=== PATIENT | female | born 1955 | race Caucasian/White ===

== ENCOUNTER 2019-07-20 12:51 | Emergency (ER) | payer OTHER ==
[~2019-07-20] VITALS: Ht 165.1 cm; Wt 81.7 kg
[2019-07-20] MEDS ORDERED: FLUOXETINE HCL60 MG PO (12:59)
[2019-07-20] MEDS ORDERED: LEVSIN0.125 MG PO (13:00)
[2019-07-20] MEDS ORDERED: SPIRONOLACTONE25 MG PO (13:00)
[2019-07-20 13:32] LABS: ABSOLUTE LYMPHOCYTES 1.2 thou/uL (0.8-5.3); ABSOLUTE MONOCYTES 0.5 thou/uL (0.0-1.2); ABSOLUTE NEUTROPHILS 2.4 thou/uL (1.6-8.1); BASOPHILS 0.7 %; HEMATOCRIT 38.5 % (37.0-47.0); HEMOGLOBIN 13.1 gm/dL (12.0-15.0); LYMPHOCYTES 28.8 %; MCH 27.4 pg (26.0-34.0); MCV 80.5 fL (80.0-100.0); MONOCYTES 12.9 %; MPV 8.3 fl. (7.2-11.1); NUCLEATED RBCS 0 /100WBC; PLATELET COUNT* 251 thou/uL (150-400); POLYS 57.6 %; RBC 4.79 mil/uL (4.20-5.00); RDW-CV 13.6 % (10.5-14.5); WBC 4.2 thou/uL (4.0-11.0)
[2019-07-20 13:37] LABS: CREATININE 0.8 mg/dL (0.6-1.3); POTASSIUM 3.1 mmol/L (3.5-5.1)
[2019-07-20 13:41] LABS: ALBUMIN 3.1 g/dL (3.4-5.0); TOTAL BILIRUBIN 0.3 mg/dL (<0.1-1.0)
[2019-07-20 13:56] LABS: URINE BILIRUBIN NEGATIVE (Negative); URINE BLOOD NEGATIVE (Negative); URINE CLARITY HAZY; URINE COLOR YELLOW; URINE GLUCOSE-RANDOM NEGATIVE (Negative); URINE KETONES 1+ (Negative); URINE LEUKOCYTES 1+ (Negative); URINE NITRITE NEGATIVE (Negative); URINE PROTEIN NEGATIVE (Negative); URINE UROBILINOGEN 0.2 E.U./dl (0.2-1.0)
[2019-07-20 14:40] LABS: BACTERIA None Seen /HPF (None Seen); CASTS None Seen /LPF (None Seen); CRYSTALS None Seen /LPF (None Seen); SQUAMOUS 4-10 Moderate /LPF (0-3); URINE RBC None Seen /HPF (0-2); URINE WBC 0-5 Rare /HPF (0-5)
--- NOTE | 2019-07-20 15:10 | EKG ---
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
[2019-07-20] MEDS ORDERED: POTASSIUM20 PO (16:42)
[2019-07-20] MEDS ORDERED: FLAGYL500 M1 PO (16:42)
[2019-07-20 17:48] VITALS: BP 127/78
== END 2019-07-20 18:07 | disposition home or self-care (01) ==
LOC: M.ERS 12:51
PROVIDERS: Physician Assistant
DX: R19.7 Diarrhea, unspecified (principal); E87.6 Hypokalemia; E87.1 Hypo-osmolality and hyponatremia; R53.1 Weakness; F32.9 Major depressive disorder, single episode, unspecified; I10 Essential (primary) hypertension; Z88.1 Allergy status to other antibiotic agents; Z88.0 Allergy status to penicillin; Z88.8 Allergy status to other drugs, medicaments and biological substances

== ENCOUNTER 2019-07-21 08:23 | Inpatient (IN) | payer OTHER ==
[~2019-07-21] VITALS: Ht 165.1 cm; Wt 81.6 kg
--- NOTE | ~2019-07-21 | CON ---
[address] [address] CONSULTATION Name: LELACAROLS Room: [address] ADM IN M.R.#: [id number] Admission: 07/21/19 Attend Phys: Danish Mirza MD Discharge: Date of : 53 Report #: [id number] THIS REPORT FOR: //name// CC: DANISH Diallo DO DATE OF SERVICE: 07/22/2019 REFERRING PHYSICIAN: Danish Mirza MD REASON FOR CONSULTATION: Anorexia with diarrhea. IMPRESSION: 1. Anorexia, early satiety, nausea, and diarrhea of uncertain significance. 2. Bilateral pneumonia, being treated with antibiotics and on room air. 3. Recent antibiotic exposure for sinusitis and/or bronchitis, certainly at risk for Clostridium difficile infection. 4. Dehydration, which appears to be improved. 5. Underlying irritable bowel. RECOMMENDATIONS: 1. Continue the patient on IV fluids, IV antibiotics, etc. 2. To await stool studies for now. The patient is certainly not in any shape to undergo bowel preparation at this time for colonoscopy. However, if her stool studies should come back negative for C. diff or any other infection, we will proceed with the colonoscopy once she is feeling better and feels like she can take a bowel preparation. 3. Alternatively, flexible sigmoidoscopy may be an option, but I would rather look at the entire colon. 4. We will proceed with upper endoscopy later tomorrow morning to evaluate her upper abdominal complaints. 5. We will also strongly consider an ID consult to help with her overall care as she does not appear to be straightforward with regards to her issues. 6. I discussed recommendations with the patient as well as her with the exception of an ID consult and they are agreeable to these plans. HISTORY OF PRESENT ILLNESS: The patient is a 63-year-old white female who has been feeling poorly for about 2 or 3 weeks. She started with sinus infection for which she was placed on antibiotics with a [id number] and this got worse. She actually had issues with nausea, anorexia, abdominal pain, and diarrhea. She had no fevers or chills. She denies any history of any problems related to her upper or lower GI tract other than the fact she has had chronic problems with irritable bowel. Her normal bowel frequency is usually daily and that she was having quite a bit of stool. She has no known [place] [address] CONSULTATION Name: BABAK VOGELITH Room: [address] IN [facility].#: [id number] Admission: 07/21/19 Attend Phys: Danish Mirza MD Discharge: Date of : 53 Report #: [id number] colitis including inflammatory bowel disease, ulcerative colitis or Crohn's. She is not on any previous studies of her lower GI tract in the past. She does have chronic reflux for which she takes medications for the same, which worked well for her. She denies dysphagia, odynophagia, nausea, vomiting, hematemesis, melena, or any other issues. Weight has been stable. She just feels extremely weak and lethargic. She is admitted to the hospital, found to have bilateral pneumonia for which she is being treated with antibiotics for the same. We were asked to see her because of issues related to her GI tract. ALLERGIES: CECLOR, AMPICILLIN, AND PENICILLIN. MEDICATIONS: At home include fluoxetine, spironolactone, Levsin, and Flagyl. PAST MEDICAL HISTORY: Remarkable for underlying depression. She had hypertension, irritable bowel. She had previous sinus surgery. SOCIAL HISTORY: She does not smoke or drink. FAMILY HISTORY: Negative. PHYSICAL EXAMINATION: GENERAL: Exam revealed a pleasant 63-year-old white female, appears pale. She does not appear ill appearing, but she did tell that she does not feel good. CARDIOPULMONARY: Revealed a tachycardic rate and rhythm. LUNGS: Clear with diminished breath sounds. ABDOMEN: Soft and not particularly tender. No rebound or guarding noted. LABORATORY DATA: From the 5th revealed a white count of 4.7, hemoglobin of 12.2, platelet count of 319,000, MCV is 80.6, and RDW is 13.4. Differential is normal. Her sodium is 137, potassium 3.9, chloride 104, and bicarb is 23. Her BUN is 7 and creatinine 0.6. Her GFR is 101. Her bilirubin from the 4th was 0.3, alkaline phosphatase is 167, AST is 45, ALT 50, albumin was 2.8. CT scan of the chest, abdomen, and pelvis was reviewed and revealed patchy bilateral pulmonary opacities noted throughout both upper lobes, lower lobes, the right middle lobe as well as lingula compatible with multifocal pneumonitis. CT scan of the abdomen and pelvis revealed that the liver, gallbladder, spleen, pancreas, and adrenals were all unremarkable. 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 The bowel does not appear to be inflamed. There is no thickening or any other issues notable. DISCUSSION: At the present time, it is unclear why she is having problem with nausea, vomiting, and diarrhea; whether this is viral or any other issues is unclear. We will proceed with studies and await further results of the same before making any further recommendations other than having her undergo an upper [address] [address] CONSULTATION Name: CARLOS VOGEL Room: [address] ADM IN M.R.#: [id number] Admission: 07/21/19 Attend Phys: Danish Mirza MD Discharge: Date of : 53 Report #: [id number] endoscopy. I have discussed the plans with the patient as well and she is agreeable to the same. By: 1611 [id number] Peres DO /greg
[~2019-07-21 08:23] MED LIST: FLAGYL500 M1 PO; FLUOXETINE HCL60 MG PO; LEVSIN0.125 MG PO; POTASSIUM20 PO; SPIRONOLACTONE25 MG PO
[2019-07-21 08:36] VITALS: BP 139/77
[2019-07-21 09:28] LABS: ABSOLUTE LYMPHOCYTES 1.3 thou/uL (0.8-5.3); ABSOLUTE MONOCYTES 0.6 thou/uL (0.0-1.2); ABSOLUTE NEUTROPHILS 1.6 thou/uL (1.6-8.1); BASOPHILS 0.3 %; EOSINOPHILS 0.1 %; HEMATOCRIT 36.8 % (37.0-47.0); HEMOGLOBIN 12.6 gm/dL (12.0-15.0); LYMPHOCYTES 36.5 %; MCH 27.5 pg (26.0-34.0); MCHC 34.1 g/dL (28.0-37.0); MCV 80.6 fL (80.0-100.0); MONOCYTES 16.8 %; MPV 7.6 fl. (7.2-11.1); NUCLEATED RBCS 0 /100WBC; PLATELET COUNT* 273 thou/uL (150-400); POLYS 46.3 %; RBC 4.57 mil/uL (4.20-5.00); RDW-CV 14.1 % (10.5-14.5); WBC 3.4 thou/uL (4.0-11.0)
[2019-07-21 09:47] LABS: INFLUENZA A ANTIGEN Negative (Negative); INFLUENZA B ANTIGEN Negative (Negative)
[2019-07-21 09:48] LABS: APTT 28.5 Seconds (25.0-31.3); INR 0.9; PROTIME 9.7 Seconds (9.20-11.50)
[2019-07-21 09:52] LABS: CALCIUM 7.8 mg/dL (8.5-10.1); CREATININE 0.7 mg/dL (0.6-1.3); POTASSIUM 3.8 mmol/L (3.5-5.1)
[2019-07-21 10:07] LABS: ALBUMIN 2.8 g/dL (3.4-5.0); TOTAL BILIRUBIN 0.3 mg/dL (<0.1-1.0); TOTAL PROTEIN 6.5 g/dL (6.4-8.2)
[2019-07-21 11:18] VITALS: BP 129/81
[2019-07-21 13:28] LABS: URINE BILIRUBIN NEGATIVE (Negative); URINE BLOOD NEGATIVE (Negative); URINE CLARITY CLEAR; URINE COLOR YELLOW; URINE GLUCOSE-RANDOM NEGATIVE (Negative); URINE KETONES 1+ (Negative); URINE LEUKOCYTES-REFLEX NEGATIVE (Negative); URINE NITRITE-REFLEX NEGATIVE (Negative); URINE PROTEIN NEGATIVE (Negative); URINE UROBILINOGEN 0.2 E.U./dl (0.2-1.0)
[2019-07-21 16:00] VITALS: BP 148/84
--- NOTE | 2019-07-21 18:47 | NUR ---
I ASSUMED CARE OF THE PATIENT AT 1130 AN ADMISSION FROM THE ER. SHE IS ALERT AND ORIENTED X4 AND BED IS IN THE LOW LOCKED POSITION AND CALL LIGHT IS IN REACH. HOURLY ROUNDING IS COMPLETE AND PATIENT NEEDS ARE MET. PAIN IS DENIED. WILL CONTINUE TO MONITOR.
[2019-07-21 20:39] VITALS: BP 141/80
--- NOTE | 2019-07-22 04:39 | NUR ---
ASSUMED CARE OF PT 07/21/19 AT APPROX 1930, PT A&OX4, PT ON ROOM AIR, VSS, PT UP WITH ASSIST TO BSC, CONTACT ISOLATION MAINTAINED, WILL CONTINUE TO MONITOR.
[2019-07-22 06:17] LABS: ABSOLUTE LYMPHOCYTES 1.6 thou/uL (0.8-5.3); ABSOLUTE MONOCYTES 0.6 thou/uL (0.0-1.2); ABSOLUTE NEUTROPHILS 2.5 thou/uL (1.6-8.1); BASOPHILS 0.4 %; EOSINOPHILS 0.1 %; HEMATOCRIT 36.1 % (37.0-47.0); HEMOGLOBIN 12.2 gm/dL (12.0-15.0); LYMPHOCYTES 32.7 %; MCH 27.4 pg (26.0-34.0); MCV 80.6 fL (80.0-100.0); MONOCYTES 13.2 %; MPV 7.6 fl. (7.2-11.1); NUCLEATED RBCS 0 /100WBC; PLATELET COUNT* 319 thou/uL (150-400); POLYS 53.6 %; RBC 4.47 mil/uL (4.20-5.00); RDW-CV 13.4 % (10.5-14.5); WBC 4.7 thou/uL (4.0-11.0)
[2019-07-22 06:32] LABS: CALCIUM 8.1 mg/dL (8.5-10.1); CREATININE 0.6 mg/dL (0.6-1.3); POTASSIUM 3.9 mmol/L (3.5-5.1)
[2019-07-22 09:30] VITALS: BP 147/71
--- NOTE | 2019-07-22 09:56 | EKG ---
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[facility] : 1955 Requested By: Juan Jose Chung Order Number: [id number] MD: Umer Menjivar Measurements Intervals [place] Rate: 76 P: 51 NE: 144 QRS: 7 QRSD: 98 T: 31 QT: 438 QTc: 493 Interpretive Statements Sinus rhythm Abnormal R-wave progression, early transition Borderline prolonged QT interval Compared to ECG 07/20/2019 13:24:50 No significant changes Electronically Signed On 07-22-2019 9:56:17 PERIODONTAL ASSISTANT by Umer Menjivar [email or web address] <ELECTRONICALLY SIGNED> By: Umer Menjivar MD, [facility] 07/22/19 0956 2 2 Umer Menjivar MD, [facility] /EPI
--- NOTE | 2019-07-22 19:00 | NUR ---
HRLY ROUNDS DONE. OUT OF CONTACT PRECAUTIONS THIS AFTERNOON. IV FLUIDS INFUSING W/O DIFF AT THIS TIME. IV SITE CHANGED. AND SISTER IN PERIODICALLY THRU SHIFT. SHOWER INDEP WITH PRESENT THIS AFTERNOON. ~JENNIFERRN
[2019-07-22 20:15] VITALS: BP 127/80
--- NOTE | 2019-07-23 02:19 | NUR ---
RECEIVED REPORT AND ASSUMED CARE AT 1900. VSS. PT DENIES COMPLAINTS OF PAIN. ASSESSMENT COMPLETED CHARTED. DISCUSSED PLAN OF CARE WITH PT, VERBALIZED UNDERSTANDING. PT STATES SHE "JUST WANT TO SLEEP". PT FAMILY BEDISIDE ASKED ABOUT MEDICATION TO HELP WITH ANXIETY/SLEEP. PT AGREES TO WANTING THE MEDICATION. PHYSICIAN NOTIFIED, ORDERS RECEIVED. UPON MEDICATION ADMIN PT STATES SHE DOES NOT WANT TO TAKE ANY MEDICATION FOR SLEEP, "I DON'T LIKE TAKING MEDICATIONS LIKE THAT" MEDICATION NOT ADMIN.RETURNED TO [facility]. BED LOCKED IN LOWEST POSTION, CALL LIGHT WITHIN REACH.
[2019-07-23 06:20] LABS: ABSOLUTE LYMPHOCYTES 1.6 thou/uL (0.8-5.3); ABSOLUTE MONOCYTES 0.7 thou/uL (0.0-1.2); ABSOLUTE NEUTROPHILS 3.1 thou/uL (1.6-8.1); BASOPHILS 0.4 %; EOSINOPHILS 0.1 %; HEMATOCRIT 35.1 % (37.0-47.0); HEMOGLOBIN 11.8 gm/dL (12.0-15.0); LYMPHOCYTES 30.3 %; MCH 27.3 pg (26.0-34.0); MCHC 33.6 g/dL (28.0-37.0); MCV 81.1 fL (80.0-100.0); MONOCYTES 13.2 %; MPV 7.5 fl. (7.2-11.1); NUCLEATED RBCS 0 /100WBC; PLATELET COUNT* 361 thou/uL (150-400); RBC 4.32 mil/uL (4.20-5.00); RDW-CV 14.4 % (10.5-14.5); WBC 5.4 thou/uL (4.0-11.0)
[2019-07-23 06:35] LABS: ALBUMIN 2.8 g/dL (3.4-5.0); CALCIUM 8.1 mg/dL (8.5-10.1); CREATININE 0.7 mg/dL (0.6-1.3); TOTAL BILIRUBIN 0.2 mg/dL (<0.1-1.0); TOTAL PROTEIN 6.2 g/dL (6.4-8.2)
[2019-07-23 07:20] VITALS: BP 142/87
[2019-07-23 17:06] VITALS: BP 135/78
--- NOTE | 2019-07-23 17:13 | NUR ---
RECEIVED REPORT FROM GERONIMO ABOUT 1630. PT EATING IN ROOM. AGREE WITH CHARTING. CALL LIGHT WITHIN REACH. WILL CONITNUE TO MONITOR.
[2019-07-23 19:55] VITALS: BP 132/80
--- NOTE | 2019-07-24 04:45 | NUR ---
VSS RA. MEDS GIVEN ORDERED. PT DENIED PAIN, N/V. IV FLUID RUNNING ORDERED. SLEEPING/RESTING ON HOURLY ROUNDS. WILL CONTINUE TO MONITOR.
[2019-07-24 07:25] VITALS: BP 138/84
[2019-07-24] MEDS ORDERED: LEVAQUIN 500 M500 M3 PO (09:52)
[2019-07-24 10:25] VITALS: BP 138/84
--- NOTE | 2019-07-24 11:04 | NUR ---
cm completed initial assessment to discuss d/c plan. pt alert and communicative. pt lives w/spouse. states she is independent and somewhat active. drives. retired. has no dmes. nor does she has any hx w/hh or snf. pt plans to d/c to home. no anticipated needs at this time.
[2019-07-24 12:44] VITALS: BP 138/84
--- NOTE | 2019-07-24 12:44 | NUR ---
PT GIVEN DISCHARGE INFORMATION, CARE NOTES, AND PRESCRIPTIONS. IV REMOVED. PT DENIED ANY QUESTIONS OR CONCERNS. FALL RISK PRECAUTIONS IN PLACE. HOURLY ROUNDING COMPLETED. PT LEFT AMBULATORY TO HOME.
== END 2019-07-24 12:45 | disposition home or self-care (01) | DRG 194 ==
LOC: M.ERS 08:23 → M.ORTHSURG 10:34 → M.TBA-ER 10:34 → M.ORTHSURG 11:29
PROVIDERS: Family Medicine; Internal Medicine Gastroenterology; ADMIT Internal Medicine
DX: J18.9 Pneumonia, unspecified organism (principal); R65.10 Systemic inflammatory response syndrome (SIRS) of non-infectious origin without acute organ dysfunction; F32.9 Major depressive disorder, single episode, unspecified; I10 Essential (primary) hypertension; K58.9 Irritable bowel syndrome, unspecified; E86.0 Dehydration; B34.9 Viral infection, unspecified; Z88.1 Allergy status to other antibiotic agents; Z88.0 Allergy status to penicillin; Z88.8 Allergy status to other drugs, medicaments and biological substances; Z79.899 Other long term (current) drug therapy